=== PATIENT | male | born 1990 | race Caucasian/White ===

== ENCOUNTER 2025-08-29 04:39 | Emergency (ER) | payer OTHER, SELFPAY ==
[2025-08-29 04:43] VITALS: BP 126/84; PULSE 66; TEMP 36.6; O2SAT 97; BMI 26.9
[2025-08-29 04:46] VITALS: PULSE 67
--- NOTE | 2025-08-29 04:46 | ECG_ITS ---
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 Measurements Intervals Elliott Rate: 67 P: 38 TX: 188 QRS: 74 QRSD: 94 T: 41 QT: 384 QTc: 399 Interpretive Statements 1100 Sinus rhythm 9110 normal ECG No previous ECG available for comparison Electronically Signed On 08-29-2025 7:35:58 EDT by IVAN LOGAN M.D.
[2025-08-29] MEDS: METHOCARBAMOL 500 MG TABLET PO (05:07)
[2025-08-29] MEDS: LIDOCAINE 5% PATCH 1 PATCH TOPICAL ×2 (05:07→05:13)
--- NOTE | 2025-08-29 05:11 | ED.GENADUL1 ---
HPI HPI - General Adult General Chief complaint: Chest Pain Stated complaint: chest pain Time Seen by Provider: 08/29/25 04:41 Source: patient Mode of arrival: walk-in Limitations: no limitations History of Present Illness HPI narrative: Patient is a 35-year-old male presenting to the emergency department for evaluation of left-sided rib pain. The patient states that he has been having the same type of pain for the last 6 days. He believes the pain started after going for a 5 mile run with a weighted vest. He states was seen at an outside ED at that time. Patient states that he underwent CT of the head, chest, abdomen, pelvis, had blood work, EKG, chest x-ray, and urinalysis. He states that everything was normal and they discharged him home. However, his left-sided rib pain has persisted and he came to our ED for a second opinion as he is concerned they missed something . The patient states that when he presses on the rib he experiences significant pain. He cannot get comfortable at night because of the rib pain. He denies any chest pain or shortness of breath. No abdominal pain, nausea, or vomiting. 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 He denies any leg swelling. No hemoptysis. No recent surgical procedures or immobilizations. Related Data Home Medications ?Medication ?Instructions ?Recorded ?Confirmed rivaroxaban 10 mg tablet (Xarelto) 10 mg PO DAILY 08/29/25 08/29/25 Allergies Allergy/AdvReac Type Severity Reaction Status Date / Time No Known Drug Allergies Allergy Verified 08/29/25 05:02 Opioid HPI Opioid Management Most Recent Opioid Data: Last Pain Scale 8 Today, 04:57 Last ED Pain Assessment Today, 04:57 Review of Systems ROS Status of ROS 10 or more systems reviewed and unremarkable except as noted in history and below [facility] Medical History (Updated 08/29/25 @ 04:58 by aMikel Moore DO) Pulmonary emboli ?I26.99 - Other pulmonary embolism without acute cor pulmonale (ICD-10) Social History Little interest or pleasure in doing things: not at all Feeling down, depressed, or hopeless: not at all Exam Narrative Exam Narrative: CONSTITUTIONAL: Well-appearing, answering questions and following commands appropriately SKIN: Was warm and dry, no abrasions, lacerations, rashes on the chest wall. EYES: Sclera white EARS, NOSE, THROAT: No JVD. RESPIRATORY: Clear to auscultation bilaterally, no wheezes, crackles, or stridor, no use of accessory muscles CARDIOVASCULAR: Normal rate and regular rhythm. There is no S3, S4, murmur, rub. GASTROINTESTINAL: Abdomen was soft, non-tender, and non-distended. There is no guarding or rebound tenderness MUSCULOSKELETAL: The left sixth anterior rib in the midclavicular line there is reproducible tenderness to palpation. With minimal palpation he has significant pain and jumps off the bed. There is no underlying crepitus or deformity. NEUROLOGIC: Patient is awake and alert. Facies were symmetrical. Constitutional Vital Signs, click to edit/add: Last Vital Signs Temp 97.9 F 08/29/25 04:43 Pulse 66 08/29/25 04:43 Resp 18 08/29/25 04:43 BP 126/84 08/29/25 04:43 Pulse Ox 97 08/29/25 04:43 O2 Del Method Room Air 08/29/25 04:43 Course Vital Signs Vital signs: Vital Signs Temperature 97.9 F 08/29/25 04:43 Pulse Rate 66 08/29/25 04:43 Respiratory Rate 18 08/29/25 04:43 Blood Pressure 126/84 08/29/25 04:43 Pulse Oximetry 97 08/29/25 04:43 Oxygen Delivery Method Room Air 08/29/25 04:43 Temperature 97.9 F 08/29/25 04:43 Pulse Rate 66 08/29/25 04:43 Respiratory Rate 18 08/29/25 04:43 Blood Pressure 126/84 08/29/25 04:43 Pulse Oximetry 97 08/29/25 04:43 Oxygen Delivery Method Room Air 08/29/25 04:43 Medical Decision Making MDM Narrative Medical decision making narrative: Patient is a 35-year-old male presenting to the emergency department with a 5-day history of left-sided rib pain after going for a 5 mile run with a weighted vest. His vital signs on arrival today are within normal limits. He is afebrile and hemodynamically stable. He is saturating 97% on room air. His examination was notable for reproducible tenderness over the left sixth rib at the midclavicular line without underlying crepitus or deformities. Triage 12 Lead EKG: Normal sinus rhythm at a rate of 67. Normal axis. No ST segment elevations. QRS, [place], and QTc interval within normal limits. Final impression: normal sinus rhythm without evidence of acute myocardial ischemia My clinical impression is that the patient symptoms are secondary to musculoskeletal pain, costochondritis from his recent vigorous exercise. Though he has a history of PE, he is consistent with his Xarelto on no missed doses. Using the Wells Criteria, he has a score of 1.5, making him low risk. He has no cardiac risk factors. Additionally, patient just had an extensive workup at an outside ED after symptoms started. He he states he had a CT of the head, chest, abdomen, pelvis, chest x-ray, laboratory studies, and urinalysis all of which were unremarkable. I do believe the patient is stable for discharge. 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 He was given a dose of Robaxin and a lidocaine patch for his symptoms tonight. He was instructed to follow-up with his PCP for further care. Return precautions were given including any new or concerning symptoms. Patient understands and agrees to the plan. FINAL IMPRESSION: #Acute musculoskeletal chest pain DISPOSITION: Discharged home CONDITION: Good ECG Data Attestation: I personally reviewed and interpreted this ECG as follows: Discharge Plan Discharge Chief Complaint: Chest Pain Clinical Impression: Musculoskeletal chest pain Patient Disposition: Home, Self-Care Time of Disposition Decision: 04:58 Condition: Good Mode of Transportation: Private Vehicle Prescriptions / Home Meds: No Action Xarelto 10 mg tablet 10 mg PO DAILY Print Language: Nepali Instructions: Chest Wall Pain (ED) Referrals: Physician,Non-Staff, MD [Primary Care Provider] - 1 week
== END 2025-08-29 05:18 | disposition home or self-care (01) ==
PROVIDERS: Emergency Provider Student in an Organized Health Care Education/Training Program
DX: R07.89 Other chest pain (principal); Z86.711 Personal history of pulmonary embolism; Z79.01 Long term (current) use of anticoagulants
CPT/HCPCS: 93005; 99284